=== PATIENT | female | born 1985 | race American Indian/Alaskan Native ===

== ENCOUNTER 2020-08-25 23:02 | Emergency (ER) | payer OTHER ==
--- NOTE | 2020-08-26 02:33 | XRay Report ---
AP AND LATERAL VIEWS OF THE NECK INDICATION: foreign body in throat. COMPARISON: No relevant prior imaging study available. FINDINGS: There is a 3 mm curvilinear density within the neck, this projects within the region of the piriform sinuses. No prevertebral soft tissue swelling. No acute skeletal abnormality. IMPRESSION: 1. 3 mm curvilinear foreign body, this appears to be in the region of the piriform sinuses near the c ricopharyngeus. Signer Name: Clark Plata MD Signed: 08/26/2020 2:29 AM Workstation Name: [id number]
--- NOTE | 2020-08-26 04:38 | Emergency Department Report ---
ED General Adult HPI - General Chief complaint: Skin/Abscess/Foreign Body Stated complaint: FOREIGN BODY THROAT PUI?: No Time Seen by Provider: 08/26/20 04:14 Source: patient Mode of arrival: Ambulatory Limitations: No Limitations - History of Present Illness Initial comments: Patient is a 35-year-old female that presents emergency room with complaints of something stuck in her throat. Patient states he was eating candy and she swallowed a candy wrapper. Patient states she has tried food and fluids and coughing and the patient still feels the wrapper stuck in her throat. Patient states that the incident happened at 5 PM on 08/25/2020. Patient states she ate multiple times and has not been able to move the right upper. Patient denies difficulty breathing. Patient states that it is a irritation to her throat. Patient denies fever and chills. Patient denies nausea vomiting. Patient denies chest pain or shortness of breath. Patient denies recent travel. Patient denies recent international travel. Patient denies exposure to the novel coronavirus. Patient denies sick contacts. Patient denies fever and chills. Patient denies cough. Patient denies diarrhea. Patient denies coming in contact with anybody with symptoms of the novel coronavirus. -: Sudden Severity scale (0 -10): 0 Quality: stabbing Consistency: constant Improves with: none Worsens with: none Associated Symptoms: denies other symptoms. denies: confusion, chest pain, cough, diaphoresis, fever/chills, headaches, loss of appetite, malaise, nausea/vomiting, rash, seizure, shortness of breath, syncope, weakness - Related Data Allergies Allergy/AdvReac Type Severity Reaction Status Date / Time amoxicillin Allergy Hives Verified 08/26/20 01:55 naproxen [From Naprosyn] Allergy Hives Verified 08/26/20 01:56 Sulfa (Sulfonamide Allergy Hives Verified 08/26/20 01:55 Antibiotics) ED Review of Systems ROS: Stated complaint: FOREIGN BODY THROAT Other details as noted in HPI Constitutional: denies: chills, fever Eyes: denies: eye pain, eye discharge, vision change ENT: throat pain. denies: ear pain Respiratory: denies: cough, shortness of breath, wheezing Cardiovascular: denies: chest pain, palpitations Endocrine: no symptoms reported Gastrointestinal: denies: abdominal pain, nausea, diarrhea Genitourinary: denies: urgency, dysuria, discharge Musculoskeletal: denies: back pain, joint swelling, arthralgia Skin: denies: rash, lesions Neurological: denies: headache, weakness, paresthesias Psychiatric: denies: anxiety, depression Hematological/Lymphatic: denies: easy bleeding, easy bruising ED Past Medical Hx - Past Medical History Previous Medical History?: No - Surgical History Past Surgical History?: Yes Additional Surgical History: . Jaw - Family History Family history: no significant - Social History Smoking Status: Never Smoker Substance Use Type: None ED Physical Exam - General Limitations: No Limitations General appearance: alert, in no apparent distress - Head Head exam: Present: atraumatic, normocephalic - Eye Eye exam: Present: normal appearance - ENT ENT exam: Present: mucous membranes moist - Neck Neck exam: Present: normal inspection - Respiratory Respiratory exam: Present: normal lung sounds bilaterally. Absent: respiratory distress - Cardiovascular Cardiovascular Exam: Present: regular rate, normal rhythm. Absent: systolic mur mur, diastolic murmur, rubs, gallop - GI/Abdominal GI/Abdominal exam: Present: soft, normal bowel sounds - Extremities Exam Extremities exam: Present: normal inspection - Back Exam Back exam: Present: normal inspection - Neurological Exam Neurological exam: Present: alert, oriented X3 - Psychiatric Psychiatric exam: Present: normal affect, normal mood - Skin Skin exam: Present: warm, dry, intact, normal color. Absent: rash ED Course Vital Signs 08/26/20 01:54 Temperature 98 F Pulse Rate 107 H Respiratory 16 Rate Blood Pressure 140/93 [Left] O2 Sat by Pulse 100 Oximetry - Reevaluation(s) Reevaluation #1: I discussed all results and clinical findings with patient. I discussed plan of care with patient. Patient agrees with plan of care and transfer. Patient is stable for transfer. Patient will be transferred to [facility] [place]. 08/26/20 05:09 - Consultations Consultation #1: Discussed case with ENT at [place], Dr. Akhtar and Dr. Akhtar I want the patient to be transferred ER to ER. 08/26/20 04:25 I discussed the case with the ER attending Dr. Alvarez. Dr. Alvarez has accepted the patient be transferred ER to ER to [facility]. 08/26/20 04:37 ED Medical Decision Making - Radiology Data Radiology results: report reviewed AP AND LATERAL VIEWS OF THE NECK INDICATION: foreign body in throat. COMPARISON: No relevant prior imaging study available. FINDINGS: There is a 3 mm curvilinear density within the neck, this projects within the region of the piriform sinuses. No prevertebral soft tissue swelling. No acute skeletal abnormality. IMPRESSION: 1. 3 mm curvilinear foreign body, this appears to be in the region of the piriform sinuses near the cricopharyngeus. - Medical Decision Making Patient is a 35-year-old female who presents emergency room with complaints of a foreign body stuck in her throat. Patient has tried multiple things to remove it. Patient is also try eating and drinking fluids and nothing has relieved the symptoms. Patient had a neck soft tissue x-ray which shows a foreign body in the cribriform pharyngeal area. I discussed the case with ENT at [place]. ENT is except the patient wants patient to go to ER to ER. The ER attending at [facility] [place] has have the patient for an ER to ER transfer. Patient is stable for transfer. Patient agrees with plan of care. Patient will be transferred via EMS. - Differential Diagnosis Foreign body in oropharynx. Critical Care Time: Yes Critical care time in (mins) excluding proc time.: 35 Critical care attestation.: If time is entered above; I have spent that time in minutes in the direct care of this critically ill patient, excluding procedure time. Critical Care Time: 35 minutes ED Disposition Clinical Impression: Foreign body Foreign body in pharynx Qualifiers: Encounter type: initial encounter Qualified Code(s): T17.208A - Unspecified foreign body in pharynx causing other injury, initial encounter Disposition: [id number]/TX-[id number] ANOTHER TYPE HLTHCARE Is pt being admited?: No Does the pt Need Aspirin: No Condition: Critical Time of Disposition: 05:13
[2020-08-26 05:22] VITALS: BP 136/95
== END 2020-08-26 05:33 | disposition other institution (70) ==
LOC: ED 23:02
DX: T17.298A Other foreign object in pharynx causing other injury, initial encounter (principal); Z98.890 Other specified postprocedural states; Z88.1 Allergy status to other antibiotic agents; Z88.2 Allergy status to sulfonamides; Z88.8 Allergy status to other drugs, medicaments and biological substances; X58.XXXA Exposure to other specified factors, initial encounter; Y93.89 Activity, other specified; Y92.89 Other specified places as the place of occurrence of the external cause; Y99.8 Other external cause status
CPT/HCPCS: 70360

== ENCOUNTER 2020-11-01 22:23 | Emergency (ER) | payer OTHER ==
[2020-11-02 01:32] VITALS: BP 121/79
== END 2020-11-02 03:25 | disposition left against medical advice (07) ==
LOC: ED 22:23
DX: R07.0 Pain in throat (principal); Z53.21 Procedure and treatment not carried out due to patient leaving prior to being seen by health care provider